=== PATIENT | female | born 1940 | race Caucasian/White ===

== ENCOUNTER 2017-04-04 10:00 | Inpatient (IN) | payer MEDICARE, BC ==
[~2017-04-04] VITALS: Ht 170.2 cm; Wt 69.3 kg
--- NOTE | ~2017-04-04 | PUL ---
PATIENT'S NAME: LIANE FISCHER [facility] AGE: 77 Y [address] ROOM: [address] [address] LOCATION: [facility] [place] ADMIT DATE: 04/21/2017 Pulmonary DISCHARGE DATE: 04/25/2017 FAMILY PHYSICIAN: Luma Leone MD ATTENDING PHYSICIAN: Blaze Arango NAME OF PROCEDURE: Overnight Pulse Oximetry DATE OF PROCEDURE: April 24 to April 25, 2017 REASON FOR EXAM: Nocturnal hypoxemia RESULTS: The test was performed on room air. The recording time was 7 hours, 50 minutes, and 32 seconds, with a total valid sampling time of 6 hours, 54 minutes, and 40 seconds. The highest pulse was 112, lowest pulse was 65, with a mean pulse of 78. The highest Spo2 was 98%, lowest SpO2 was 78%, with a mean SpO2 of 88%. The patient spent 4 hours, 44 minutes and 4 seconds with SpO2 less than 89%, representing 68.5% of the total sleep time. The desaturation event index was slightly elevated at 5.9. PHYSICIAN INTERPRETATION: The patient has evidence of significant nocturnal hypoxia and would qualify for supplemental oxygen as per Medicare criteria. However, because of the severity of her nocturnal hypoxia with an elevated desaturation event index a sleep study is recommended at this time. HOLDEN NEWSOME MD RFN/noelle /[id number] dtt: 04/28/17 1231 MERCEDEZ RADU F dtd: 04/27/17 0909
--- NOTE | ~2017-04-04 | DS ---
PATIENT'S NAME: LIANE FISCHER [facility] AGE: 77 Y [address] ROOM: [id number] [place], [place] [address] LOCATION: [facility] [place] ADMIT DATE: 04/21/2017 Discharge Summary DISCHARGE DATE: 04/25/2017 FAMILY PHYSICIAN: Luma Leone MD ATTENDING PHYSICIAN: Shankar Vaughn PRIMARY DIAGNOSIS: Degenerative joint disease of bilateral knee. SECONDARY DIAGNOSES: Coronary artery disease, hypertension, gastroesophageal reflux disease, rheumatoid arthritis, history of aortic valve replacement, and nocturnal hypoxia. PROCEDURE PERFORMED: Bilateral total knee arthroplasty with computer navigation. HISTORY: The patient is a 77-year-old female who presents with advanced bilateral knee degenerative joint disease and associated severely compromised activities of daily living. The patient has decided to proceed with total knee arthroplasty after having been thoroughly counseled regarding the risks, benefits, limitations and alternatives. Please refer to the outpatient clinic notes and admission history and physical for this patient. HOSPITAL COURSE: The patient underwent a bilateral total knee arthroplasty with computer navigation on 04/21/2017 without complications. Spinal anesthesia plus periarticular local anesthesia was utilized. The patient received 24 hours of perioperative prophylactic antibiotics and remained hemodynamically stable, neurovascularly intact throughout the entire hospital course. The postoperative prophylactic deep venous thrombosis prophylaxis consisted of Xarelto, early mobilization and pneumatic compression devices. Daily physical therapy for gait training, transfer training range of motion and quadriceps isometric exercises were received. The patient progressed well in physical therapy. On the date of discharge, 04/25/2017, the incision at the knee was healing well and showed no signs of infection. DISPOSITION: Home. DISCHARGE ACTIVITY: No range of motion until followup appointment. There is to be sterile 4x4 gauze dressings to the incision daily. Dr. Vaughn is to be notified immediately if there is any increased pain, fevers, chills erythema or drainage. DISCHARGE MEDICATIONS: Include, 1. Xarelto 10 mg, take 1 tablet p.o. daily for DVT prevention. 2. Diazepam 5 mg, take 1/2 tablet to one tablet every 6 hours as needed for muscle spasms. PATIENT'S NAME: LIANE FISCHER [facility] AGE: 77 Y [address] ROOM: [address] [place], [place] [address] LOCATION: [facility] [place] ADMIT DATE: 04/21/2017 Discharge Summary DISCHARGE DATE: 04/25/2017 FAMILY PHYSICIAN: Luma Leone MD ATTENDING PHYSICIAN: Shankar Vaughn 3. Dilaudid 2 mg, take 1 to 2 tablets p.o. every 4 hours as needed for pain. FOLLOWUP: Followup appointment is to be with Dr. Vaughn on 04/28/2017 for initial postoperative evaluation and x-rays at that time. BC BANUELOS FOR SHANKAR VAUGHN MD TLB/modl /[id number] d: 05/05/17 0456 t: 05/15/17 0939, DISCHARGE SUMMARY
--- NOTE | ~2017-04-04 | OR ---
PATIENT'S NAME: LIANE FISCHER [facility] AGE: 77 Y [address] ROOM: [place] [address] LOCATION: [facility] [place] ADMIT DATE: 04/21/2017 OR/Procedure Report DISCHARGE DATE: FAMILY PHYSICIAN: Luma Leone MD ATTENDING PHYSICIAN: SHANKAR VAUGHN SURGEON: Shankar Vaughn MD DIRECTOR OF NEIGHBORHOOD SERVICE CENTER: 1. Vijay Beck PA-C. 2. Arnulfo Washington CST/BINA. DATE OF PROCEDURE: 04/21/2017 PRE-OP DIAGNOSIS: Degenerative joint disease both knees. POST-OP DIAGNOSIS: Degenerative joint disease both knees. OPERATION: Bilateral total knee arthroplasty with computer navigation. ANESTHESIA: Spinal anesthesia plus periarticular local anesthesia (Ropivacaine with epinephrine and Toradol). ESTIMATED BLOOD LOSS: Less than 10 mL (each side). DRAIN: None. SPECIMEN: None. COMPLICATIONS: None. IMPLANT SYSTEM: Birdie Triathlon. Size 4 posterior stabilized femoral components bilaterally. Size 3 [place] Modular tibial plates bilaterally. An 11 mm posterior stabilized size 3, X3, tibial polyethylene inserts bilaterally. A 32 mm Oval X3 patella components bilaterally (triple pegged). INDICATION FOR SURGERY: Liane Fischer is a 77-year-old female who presents with advanced bilateral knee degenerative joint disease and associated severely compromised activities of daily living. The patient has decided to proceed with bilateral knee replacements after having been thoroughly counseled regarding the associated risks, benefits, and limitations. We have specifically reviewed the risks and implications of infection, deep venous thrombosis, pulmonary embolism, mortality, neurovascular complications, blood transfusion (and associated potential for disease transmission or transfusion reaction), stiffness, instability, mechanical deterioration of the components (due to wear and or loosening), and the potential need for revision. We have also emphasized the importance of active involvement and compliance with post- PATIENT'S NAME: LIANE FISCHER [facility] AGE: 77 Y [address] ROOM: [place] [id number] LOCATION: [facility] [place] ADMIT DATE: 04/21/2017 OR/Procedure Report DISCHARGE DATE: FAMILY PHYSICIAN: Luma Leone MD ATTENDING PHYSICIAN: SHANKAR VAUGHN operative physical therapy as a means of optimizing range of motion and functional recovery. Informed consent has been granted. We have also reviewed potential increased risks associated with bilateral (as opposed to staged) knee replacements including increased risk of requiring blood transfusion as well as the potential increased risk of mortality, deep venous thrombosis, and/or fat embolism syndrome. The patient has chosen to accept these potential increased risks. DESCRIPTION OF PROCEDURE: The patient was positioned supine after administration of anesthesia and prophylactic antibiotics. A well-padded pneumatic tourniquet was placed around both proximal thighs, and both lower extremities were prepped and draped with vigilant sterile technique. The patient's name as well as the intended procedure were confirmed with a verbal time-out involving myself, the circulating nurse, the scrub nurse, and the anesthesiologist. Attention was first focused on the right lower extremity. Examination under anesthesia demonstrated no active skin lesions or masses. There was a mild effusion. There was no erythema. There was no abnormal warmth. Range of motion under anesthesia was from a 5-degree flexion contracture to 130 degrees of flexion. There was no ligamentous insufficiency. The right lower extremity was elevated and exsanguinated with an Esmarch wrap, and the pneumatic tourniquet was inflated to 300 mm. The knee was approached through a longitudinal midline incision. A medial parapatellar arthrotomy was performed and the patella was everted. Examination of the joint space demonstrated a moderate amount of benign-appearing translucent synovial fluid. There was a small osteophyte at the intercondylar notch. There were no loose bodies. There was no synovitis. Cruciate ligaments were intact. There were moderate-sized osteophytes at the tibial spines. There was severe generalized osteopenia. There was a small popliteal cyst, which I decompressed into the posterior medial aspect of the joint by dilating its point of communication. There was a large osteophyte at the lateral margin of the patella. There were small osteophytes at the lateral femoral condyle and lateral margin of the femoral trochlea. There was moderate chondrocalcinosis at the medial and lateral menisci as well as the medial and lateral tibial plateaus. There was mild grade 3 chondromalacia at the lateral tibial plateau. There was grade 2 chondromalacia at the medial tibial plateau. There were moderate grade 3 degenerative changes at the medial femoral condyle with high-grade partial- thickness unstable flaps of delaminated articular cartilage at the medial femoral condyle. There was full-thickness loss of articular cartilage involving 90% of the patella and the lateral 75% of the femoral trochlea with associated deep erosion of subchondral bone from the lateral half of the patella and the lateral half of the femoral trochlea. There was associated PATIENT'S NAME: LIANE FISCHER [facility] AGE: 77 Y [address] ROOM: [place] [address] LOCATION: [facility] [place] ADMIT DATE: 04/21/2017 OR/Procedure Report DISCHARGE DATE: FAMILY PHYSICIAN: Luma Leone MD ATTENDING PHYSICIAN: SHANKAR VAUGHN deep longitudinal erosions and striations of articular cartilage throughout the patellofemoral joint yielding a corduroy appearance. Remnants of the menisci and cruciate ligaments were excised. The C2cube computer navigation femoral tracker was secured in place at the distal aspect of the femoral trochlea with three pins. Absence of motion between the femur and the tracking device was confirmed manually and visually. Femoral osseous landmarks were obtained in order to calibrate the computer navigation system. Landmarks included the center of rotation of the ipsilateral hip, the center- point of the distal femur, the vertical bisector of the femoral trochlea, 20 points on the medial femoral condyle articular surface, and 20 points on the lateral femoral condyle articular surface. The C2cube computer navigation system was subsequently utilized to position the distal femoral resection block such that the distal femoral resection was performed perfectly perpendicular to the femoral mechanical axis. The distal femoral resection was performed with a [employer] oscillating saw. The C2cube computer navigation tibial tracker was secured in place at the anterior aspect of the tibial plateau with three points. Absence of motion between the tibia and the tracking device was confirmed manually and visually. Tibial osseous landmarks were obtained in order to calibrate the computer navigation system. Landmarks included the center-point of the tibial plateau, the sagittal bisector of the tibial plateau, 20 points on the medial tibial plateau articular surface, 20 points on the lateral tibial plateau articular surface, the medial malleolus, and the lateral malleolus. The C2cube computer navigation system was subsequently utilized to position the proximal tibial resection block such that the proximal tibial resection was performed perfectly perpendicular to the tibial mechanical axis. The proximal tibial resection was performed with a [employer] oscillating saw. Perpendicularity of the tibial resection with respect to the tibial shaft axis was reconfirmed by inserting a spacer-block attached to an extramedullary guide lucas. External rotation of the anterior and posterior femoral resections was set parallel to the epicondylar axis and carefully adjusted in order to create a rectangular flexion gap. The box resection was performed with a reciprocating saw. Anterior and posterior chamfer resections were performed with the oscillating saw. Posterior condyle osteophytes were excised with an osteotome. All other osteophytes were excised with a rongeur. Resection of all remnants of the menisci was reconfirmed. Flexion and extension gaps were confirmed to be symmetric and well balanced with a spacer-block technique. The patella resection was performed with an oscillating saw such that the composite thickness of the reconstructed patella was equivalent to the thickness of the [place] patella. Patella tracking was optimal, and there was PATIENT'S NAME: LIANE FISCHER [facility] AGE: 77 Y [address] ROOM: [place] [address] LOCATION: [facility] [place] ADMIT DATE: 04/21/2017 OR/Procedure Report DISCHARGE DATE: FAMILY PHYSICIAN: Luma Leone MD ATTENDING PHYSICIAN: SHANKAR VAUGHN no need for a lateral retinacular release. All trial components were removed and all prepared osseous surfaces were thoroughly irrigated with pulsatile saline lavage and dried prior to cementing all three components in a single stage using [employer] Simplex cement containing pre-mixed tobramycin. All extruded excess cement was removed. The entire joint space was thoroughly inspected and thoroughly irrigated with bacteriostatic pulsatile saline lavage to assure that there was no residual debris of any sort. Final range of motion was from full extension to 130 degrees of flexion. Patella tracking was reconfirmed to be optimal. There was excellent anteroposterior stability at 90 degrees of flexion. There was less than 1 mm of medial lift-off to valgus stress in full extension. There was less than 1 mm of lateral lift-off to varus stress in full extension. The arthrotomy was closed with multiple simple and [id number]-ce-zvajt interrupted #1 Vicryl and #0 Vicryl sutures. Subcutaneous tissues were thoroughly re- irrigated with bacteriostatic pulsatile saline lavage. Subcutaneous tissues were re-approximated with simple buried interrupted #0 Vicryl sutures followed by surgical obie. The dressing consisted of Xeroform gauze, 4 x 4 gauze, ABD pads and two 6-inch George Wraps. There were no intra-operative complications. Attention was next focused on the left lower extremity. Examination under anesthesia demonstrated a mild effusion. There were no active skin lesions or masses. There was no erythema. There was no abnormal warmth. Range of motion under anesthesia was from a 2 degree flexion contracture to 140 degrees of flexion. There was no ligamentous insufficiency. The left lower extremity was elevated and exsanguinated with an Esmarch wrap, and the pneumatic tourniquet was inflated to 300 mm. The knee was approached through a longitudinal midline incision. A medial parapatellar arthrotomy was performed and the patella was everted. Examination of the joint space demonstrated a moderate amount of benign-appearing translucent synovial fluid. Cruciate ligaments were intact. There were moderate-sized osteophytes at the tibial spines. There was no synovitis. There were no loose bodies. There was extensive chondrocalcinosis at the lateral meniscus. There was mild chondrocalcinosis at the medial meniscus. There was moderate chondrocalcinosis at the lateral tibial plateau. There were mild grade 3 degenerative changes and a small osteophyte at the lateral tibial plateau. There was a 1 cm diameter region of full-thickness articular cartilage loss at PATIENT'S NAME: LIANE FISCHER [facility] AGE: 77 Y [address] ROOM: [address] [address] LOCATION: [facility] [place] ADMIT DATE: 04/21/2017 OR/Procedure Report DISCHARGE DATE: FAMILY PHYSICIAN: Luma Leone MD ATTENDING PHYSICIAN: SHANKAR VAUGHN the posterior medial aspect of the lateral femoral condyle. There was a small osteophyte at the lateral femoral condyle. There was moderate chondrocalcinosis at the medial tibial plateau and mild chondrocalcinosis at the medial femoral condyle. There was grade 2 chondromalacia at the medial tibial plateau. There was high-grade, partial-thickness articular cartilage loss at the medial femoral condyle with multiple unstable high-grade, partial- thickness flaps of articular cartilage at the medial femoral condyle. There was a small osteophyte at the lateral femoral trochlea. There was a large osteophyte at the superolateral margin of the patella. There was full- thickness loss of articular cartilage throughout the lateral 90% of the patella and the lateral 80% of the femoral trochlea. There were deep longitudinal striations of eburnated, eroded, subchondral bone at the patellofemoral joint yielding a corduroy appearance. The subchondral erosion was deeper at the patella on the left knee compared to the right knee. Remnants of the menisci and cruciate ligaments were excised. The C2cube computer navigation femoral tracker was secured in place at the distal aspect of the femoral trochlea with three pins. Absence of motion between the femur and the tracking device was confirmed manually and visually. Femoral osseous landmarks were obtained in order to calibrate the computer navigation system. Landmarks included the center of rotation of the ipsilateral hip, the center- point of the distal femur, the vertical bisector of the femoral trochlea, 20 points on the medial femoral condyle articular surface, and 20 points on the lateral femoral condyle articular surface. The C2cube computer navigation system was subsequently utilized to position the distal femoral resection block such that the distal femoral resection was performed perfectly perpendicular to the femoral mechanical axis. The distal femoral resection was performed with a [employer] oscillating saw. The C2cube computer navigation tibial tracker was secured in place at the anterior aspect of the tibial plateau with three pins. Absence of motion between the tibia and the tracking device was confirmed manually and visually. Tibial osseous landmarks were obtained in order to calibrate the computer navigation system. Landmarks included the center-point of the tibial plateau, the sagittal bisector of the tibial plateau, 20 points on the medial tibial plateau articular surface, 20 points on the lateral tibial plateau articular surface, the medial malleolus, and the lateral malleolus. The C2cube computer navigation system was subsequently utilized to position the proximal tibial resection block such that the proximal tibial resection was performed perfectly perpendicular to the tibial mechanical axis. The proximal tibial resection was performed with a [employer] oscillating saw. Perpendicularity of the tibial resection with respect to the tibial shaft axis was reconfirmed by inserting a spacer-block attached to an extramedullary guide lucas. PATIENT'S NAME: LIANE FISCHER [facility] AGE: 77 Y [address] ROOM: [address] [address] LOCATION: [facility] [place] ADMIT DATE: 04/21/2017 OR/Procedure Report DISCHARGE DATE: FAMILY PHYSICIAN: Luma Leone MD ATTENDING PHYSICIAN: SHANKAR VAUGHN External rotation of the anterior and posterior femoral resections was set parallel to the epicondylar axis and carefully adjusted in order to create a rectangular flexion gap. The box resection was performed with a reciprocating saw. Anterior and posterior chamfer resections were performed with the oscillating saw. Posterior condyle osteophytes were excised with an osteotome. All other osteophytes were excised with a rongeur. Resection of all remnants of the menisci was reconfirmed. Flexion and extension gaps were confirmed to be symmetric and well balanced with a spacer-block technique. The patella resection was performed with an oscillating saw such that the composite thickness of the reconstructed patella was equivalent to the thickness of the [place] patella. Patella tracking was optimal, and there was no need for a lateral retinacular release. Left. All trial components were removed and all prepared osseous surfaces were thoroughly irrigated with pulsatile saline lavage and dried prior to cementing all three components in a single stage using [employer] Simplex cement containing pre-mixed tobramycin. All extruded excess cement was removed. The entire joint space was thoroughly inspected and thoroughly irrigated with bacteriostatic pulsatile saline lavage to assure that there was no residual debris of any sort. Final range of motion was from full extension to 130 degrees of flexion. Patella tracking was reconfirmed to be optimal. There was excellent anteroposterior stability at 90 degrees of flexion. There was less than 1 mm of medial lift-off to valgus stress in full extension. There was less than 1 mm of lateral lift-off to varus stress in full extension. The arthrotomy was closed with multiple simple and [id number] interrupted #1 Vicryl and #0 Vicryl sutures. Subcutaneous tissues were thoroughly re- irrigated with bacteriostatic pulsatile saline lavage. Subcutaneous tissues were re-approximated with simple buried interrupted #0 Vicryl sutures. The skin was closed with simple buried interrupted 2-0 Vicryl sutures followed by surgical obie. The dressing consisted of Xeroform gauze, 4 x 4 gauze, ABD pads and two 6-inch George Wraps. There were no intra-operative complications. It should be noted that the physician's law office assistant played an active, integral role throughout this entire operation. By providing expert retraction, they greatly facilitated and expedited safe and effective exposure of the distal femur, proximal tibia and patella for preparation and implantation of the components. They were also actively involved in the patient's positioning, PATIENT'S NAME: LIANE FISCHER [facility] AGE: 77 Y [address] ROOM: [place] [address] LOCATION: [facility] [place] ADMIT DATE: 04/21/2017 OR/Procedure Report DISCHARGE DATE: FAMILY PHYSICIAN: Luma Leone MD ATTENDING PHYSICIAN: SHANKAR VAUGHN prepping and draping, as well as wound closure. MD TJ ALICIA/modl /[id number] d: 04/23/17 0940 t: 04/25/17 1033, OPERATIVE SUMMARY
[2017-04-04] MEDS ORDERED: NORCO 5-325 TA1 EACH PO (10:08)
[2017-04-04] MEDS ORDERED: LIPITOR80 MG PO (10:09)
[2017-04-04] MEDS ORDERED: ASPIRIN EC81 MG PO (10:09)
[2017-04-04] MEDS ORDERED: COREG 3.1253.125 MG PO (10:10)
[2017-04-04] MEDS ORDERED: K-TAB ER20 MEQ PO (10:10)
[2017-04-04] MEDS ORDERED: NEURONTIN300 MG PO (10:10)
[2017-04-04] MEDS ORDERED: PROTONIX40 MG PO (10:11)
[2017-04-04] MEDS ORDERED: ALDACTONE25 MG PO (10:12)
[2017-04-04] MEDS ORDERED: METHOTREXATE (2.5 MG PO (10:13)
[2017-04-04] MEDS ORDERED: FOLIC ACID0.8 MG PO (10:14)
[2017-04-04] MEDS ORDERED: TYLENOL ARTHRI650 MG PO (10:15)
--- NOTE | 2017-04-21 17:50 | NUR ---
Significant Event: Pt to the floor from OR at 1630. VS q30min x3 starting at 1820. HR has been in the 40s. Was in OR and anesthesia knows. Pt on PULLEY WORKER with dilaudid 0.2mg with lockout at 15 minutes. Numbness and tingling to bilateral LE. Wiggles toes with slight movement. Cannot dorsiflex or plantarflex at this time. PP 2+ bilaterally. ICE wraps in place. Dressing clean dry and intact to bilateral extremities. Denies pain. Pt had a spinal and a general anesthetic. Pt hasn't voided
--- NOTE | 2017-04-21 18:51 | NUR ---
I was preceptor for Kandi Barajas student nurse and I agree with her charting since pt came up from PACU.
--- NOTE | 2017-04-22 04:24 | NUR ---
Significant Event: Dressings are clean, dry and intact. CSM WNL. 1-2 assist with transfers. Voided 300 ml. Was hypotensive and gave a 500ml bolus per MD order. On 2 L of oxygen nasal cannula. On a Dilaudid EDITOR IN CHIEF. Heart rate has been in 40's, MD aware and call if less than 40. EKG done and results called to MD. Follow up:
[2017-04-22 04:36] LABS: HEMATOCRIT 28.9 % (33.0-46.0); HEMOGLOBIN 9.1 g/dL (10.0-15.0)
--- NOTE | 2017-04-22 19:14 | NUR ---
Significant Event: UP IN RECLINER. AMBUL TO BR, TOLERATED FAIR. CARA WRP D/I BILAT. CSM GOOD. HAD DILAUDID 2 MG 1 TAB X2 LAST AT 1510, HAD ROUTINE TYLENOL. HAD TORADOL 15 MG IV AT 1700. REPORTS RELIEF FROM THAT,,,,HAVING LOW HR AND BP. AWARE.MED HELD.... Follow up:
--- NOTE | 2017-04-23 03:59 | NUR ---
Shift Summary: Patient can ambulate with one assist. Only took one 2mg Diladid for pain this shift at 0134. Tolerating regular diet well. Voiding without difficulty. Refuses miralax.
[2017-04-23 05:30] LABS: HEMATOCRIT 24.1 % (33.0-46.0); HEMOGLOBIN 7.7 g/dL (10.0-15.0)
--- NOTE | 2017-04-23 18:04 | NUR ---
Significant Event: UP TO BR, CHAIR, AMBUL IN [place], TOLERATED WELL. HGB IS 7.9...HAD DILAUDID 2 MG X2 LAST AT 1140, HAD TORADOL 15 MG AT 1140. OFFERED PAIN MED AT 1700 BUT REFUSED. CSM GOOD, DRSG CHANGED, HAS SCANT AMT BLOOD DRAINAGE ON DRSG, ENC TO KEEP ICE ON KNEES, PLANING ON DISMISSAL ON MONDAY. Follow up:
--- NOTE | 2017-04-24 03:56 | NUR ---
Shift Summary: Patient's Hgb 7.7 yesterday. Patient requiring 4L O2 throughout the night. RT stated he was unable to wean her down from that. Did give patient Valium 5mg/Dilaudid 2mg at bedtime. Changed dressings at beginning of shift per 's orders wit betadine paint of incision due to bloody drainage. Changed the right knee dressing again during the night for quarter size drainage. Patient having difficulty standing up and slower ambulating.
[2017-04-24 05:46] LABS: HEMATOCRIT 19.5 % (33.0-46.0)
[2017-04-24 05:48] LABS: HEMOGLOBIN 6.2 g/dL (10.0-15.0)
[2017-04-24 09:40] LABS: HEMATOCRIT 20.4 % (33.0-46.0)
[2017-04-24 09:42] LABS: HEMOGLOBIN 6.5 g/dL (10.0-15.0)
--- NOTE | 2017-04-24 13:11 | NUR ---
Patient attended the preop joint class with her son. Reports she has DME available. Plans to have help from her sons. May dismiss to son's home in [place]. Reviewed use of IS and encouraged at least 10 deep breaths per hour. Has foot pumps on bilat. Will follow and assist as needed.
--- NOTE | 2017-04-25 03:08 | NUR ---
Significant Event: Alert and oriented X3. Low grade temp of 99.5, otherwise, VSS. Sats 90-92% on RA. Overnight trend ox ordered tonight. CSM WNL. Slight edema present to bilateral lower extemities. Dressings CDI. Incontinent of urine X1. No BM this shift. Need hemetest stools X3. IV SL'd to L) wrist. Ambulates with 1 assist, gait belt and walker. Scheduled tylenol and dilaudid for pain. Dilaudid last given at 0253. 2 units of blood transfused yesterday. Follow up: Hgb this am. Xarelto on hold.
[2017-04-25 05:29] LABS: HEMOGLOBIN 8.6 g/dL (10.0-15.0)
[2017-04-25 05:34] LABS: HEMATOCRIT 26.5 % (33.0-46.0)
[2017-04-25] MEDS ORDERED: COLACE100 MG PO (13:03)
[2017-04-25] MEDS ORDERED: MIRALAX17 GM PO (13:04)
[2017-04-25] MEDS ORDERED: VALIUM5 MG PO (13:05)
[2017-04-25] MEDS ORDERED: DILAUDID 2MG(HYD2 MG PO (13:06)
[2017-04-25] MEDS ORDERED: XARELTO10 MG PO (13:07)
--- NOTE | 2017-04-25 16:40 | NUR ---
D: ORDERS RECEIVED FOR THE PATIENT TO BE DISCHARGED TO HOME TODAY WITH FAMILY. I: DISMISSAL INSTRUCTIONS WERE PREPARED AND REVIEWED WITH PATIENT AND HER DAUGHTER IN LAW AT BEDSIDE. THE FOLLOWING INFORMATION WAS DISCUSSED INCLUDING KRAMES TEACHING SHEETS PROVIDED: AFTER KNEE REPLACEMENT AT [facility], XARELTO, COLACE, MIRALAX, VALIUM, DILAUDID, AND INCISION CARE. REVIEWED FOLLOW UP APPOINTMENTS AND THAT SHE NEEDS TO FOLLOW UP WITH A PCP IN 2 WEEKS AND ALL NEW PRESCRIPTIONS. R: THE PATIENT AND HER DAUGHTER IN LAW BOTH VERBALIZED UNDERSTANDING OF THE DISMISSAL EDUCATION AT THE TIME OF TEACHING WITH NO FURTHER QUESTIONS. P: THE ABOVE INFORMATION WAS SHARED WITH THE PRIMARY NURSE AND THE CHARGE NURSE THAT THE PATIENT'S DISMISSAL EDUCATION WAS COMPLETED. THE PATIENT IS READY FOR DISCHARGE TO HOME WITH HER SON AND DAUGHTER IN LAW SOON HE RETURNS TO THE HOSPITAL. THE PATIENT WILL BE TRANSPORTED VIA WHEEL CHAIR BY NURSING STAFF TO THE FRONT DOOR BY NURSING STAFF.
--- NOTE | 2017-04-25 16:57 | NUR ---
DISMISSED PER W/C TO CAR ACCOMP.BY MIXING MACHINE TENDER CORK GASKET & FAMILY AFTER DISCHARGE TEACHING WAS DONE BY VIRTUAL NURSE AND THEY VERBALIZED UNDERSTANDMENT.
== END 2017-04-25 16:57 | disposition disaster alternative care site (69) | DRG 462 ==
LOC: G3N 04-21 09:13 → GMSU 04-22 16:31
PROVIDERS: Hospitalist; Nurse Practitioner Family; Physician Assistant; ADMIT Orthopaedic Surgery
DX: M17.0 Bilateral primary osteoarthritis of knee (principal); D62 Acute posthemorrhagic anemia; M06.9 Rheumatoid arthritis, unspecified; R00.1 Bradycardia, unspecified; I10 Essential (primary) hypertension; I25.10 Atherosclerotic heart disease of native coronary artery without angina pectoris; K21.9 Gastro-esophageal reflux disease without esophagitis; Z87.891 Personal history of nicotine dependence
CPT/HCPCS: C1713; C1776; J1100; J1170; J1885; J2001; J2405; J2795; J7030; J7050; J7060; J7120; P9016

== ENCOUNTER → 2017-04-06 | Outpatient (CLI) | payer MEDICARE, BC ==
[~2017-04-06] MED LIST: ALDACTONE25 MG PO; ASPIRIN EC81 MG PO; COLACE100 MG PO; COREG 3.1253.125 MG PO; DILAUDID 2MG(HYD2 MG PO; FEOSOL325 MG PO; FOLIC ACID0.8 MG PO; K-TAB ER20 MEQ PO; KEFLEX500 MG PO; LASIX20 MG PO; LIPITOR80 MG PO; MACROBID100 MG PO; METHOTREXATE (2.5 MG PO; MIRALAX17 GM PO; NEURONTIN300 MG PO; NORCO 5-325 TA1 EACH PO; PROTONIX40 MG PO; TYLENOL ARTHRI650 MG PO; VALIUM5 MG PO; XARELTO10 MG PO
[2017-04-06 14:13] LABS: INR - (THERAPEUTIC) 0.95 (0.92-1.07)
== END ==
LOC: LGSMG 14:01
PROVIDERS: Internal Medicine
DX: Z01.818 Encounter for other preprocedural examination (principal)

== ENCOUNTER → 2017-04-06 | Outpatient (CLI) | payer MEDICARE, BC | END | disposition disaster alternative care site (69) | LOC: GNJRC 10:17 | DX: Z01.812 Encounter for preprocedural laboratory examination (principal); M17.11 Unilateral primary osteoarthritis, right knee; M17.12 Unilateral primary osteoarthritis, left knee ==

== ENCOUNTER 2017-05-17 00:03 | Observation (INO) | payer MEDICARE, BC ==
[~2017-05-17] VITALS: Ht 226.1 cm; Wt 70.8 kg
--- NOTE | ~2017-05-17 | ER ---
PATIENT'S NAME: LIANE FISCHER [facility] AGE: 77 Y [address] ROOM: [id number] [place], [place] [address] LOCATION: GPCU ADMIT DATE: 05/17/2017 ER/Outpatient Report DISCHARGE DATE: FAMILY PHYSICIAN: PHYSICIAN, NO ATTENDING PHYSICIAN: SHANKAR VAUGHN HISTORY OF PRESENT ILLNESS: I was called by the physician's retirement assistant in the Operating Room in [place] this evening to inform me that Ms. Fischer had presented there (after having been declined admission to a local mcc). She states that she has been feeling "tired and depressed" over the past week or so. We performed simultaneous bilateral knee replacements for her on April 21. She has been residing at home with various friends, neighbors, and family members checking in on her daily. She states that she has not been eating very much because none of her helpers prepare food. She states that she has been avoiding drinking liquids because of urinary urgency, incontinence, and dysuria. She has been taking one Dilaudid in the evening and one Dilaudid in the morning. Analgesia has been adequate. In fact, she has required no Dilaudid today. She states that she is having minimal knee pain. Both knees feel markedly improved compared to before surgery. She notes that her range of motion is markedly improved compared to before surgery. She is optimistic regarding the ongoing trend of improvement in her knees, and neither the patient (nor her son, who accompanies her) suspect that there is a problem with either of her knees. She presented to a local Urgent Care Center with complaints of dysuria and urinary frequency one week ago. The Urgent Care Center in [place] prescribed antibiotics. These provided partial relief for approximately 2 days. Symptoms escalated a few days later, and she returned to the same Urgent Care Center last weekend, where she was told (by the same physician's retirement assistant), "we didn't get a good culture, and I am not sure I put you on the right antibiotics." A second culture was obtained, and she was placed on a different oral antibiotic (ciprofloxacin). She continues to experience urinary urgency in the morning, but the dysuria has resolved. Of note, a repeat urinalysis at the Emergency Room in [place] this evening demonstrated no sign of a persistent urinary tract infection. Nonetheless, the patient has been curtailing her oral fluid intake because of the ongoing urinary urgency and incontinence that she has been experiencing in the morning. Of note, she has a history of "frequent urinary tract infections" in the past. She has been alternating between a walker and a cane, but she notes that she is able to ambulate within her house with no assistive device. She notes that she ambulates markedly better than she did before surgery. She states that outpatient physical therapy has been going well. She states, "my knees are PATIENT'S NAME: LIANE FISCHER [facility] AGE: 77 Y [address] ROOM: [id number] [place], [place] [address] LOCATION: GPCU ADMIT DATE: 05/17/2017 ER/Outpatient Report DISCHARGE DATE: FAMILY PHYSICIAN: PHYSICIAN, NO ATTENDING PHYSICIAN: SHANKAR VAUGHN much better than before surgery." She states that her neighbor encouraged her to go to [facility] to be admitted to receive "extra physical therapy." She did go to [facility] today, where she was told that she could not be admitted. Her son subsequently took her to the [place] Emergency Room. Of note, there was no communication with my office regarding any of the events in the last week. Multiple tests were performed in the [place] Emergency Room. Her principal complaint in the Emergency Room was not her knees. In fact, she states, "I told them that my knees didn't hurt." She has been experiencing significant discomfort and tightness at the posterior aspects of both distal calves. Concern was raised in the Emergency Room regarding the potential for cellulitis in the calves. A duplex venous ultrasound in the Emergency Room this evening was negative for DVT in both lower extremities. X-rays were taken of both knees, and this is in addition to the x-rays that were taken in my office a few weeks ago. These were interpreted as normal. Again, the patient was not complaining of knee pain, and there has been no postoperative trauma to either knee. The Emergency Room physician in [place] tells me that he checked the knee x-rays because "the legs were hurting her." The patient states that it has been difficult and painful for her to apply her JANICE stockings (due to pain in the distal posterior calves), but she has been doing this anyway. She states that her Physical therapist has been telling her that she is "doing all right." The C-reactive protein in the [place] Emergency Room was noted to be markedly elevated (57). The erythrocyte sedimentation rate was noted to be mildly elevated. The patient states that she started to experience low-grade fevers today. She denied chills. She has no other localizing signs or symptoms of infection. She denies chest pain or shortness of breath. Her troponin was slightly elevated in the [place] Emergency Room. This was discussed with her customer care specialist, (Dr. Soliz), who also happens to be a close family friend. The Emergency Room physician in [place] informed me that Dr. Soliz was not concerned by the elevated troponin. EKG changes were also reportedly noted. After being contacted by the Emergency Room physician in [place], I asked that the patient be brought here by a private vehicle. There were no signs and symptoms of septicemia, and I therefore, suggested that the patient did not need to come by ambulance. This was the patient's family's preference as PATIENT'S NAME: LIANE FISCHER [facility] AGE: 77 Y [address] ROOM: [id number] [place] [id number] LOCATION: GPCU ADMIT DATE: 05/17/2017 ER/Outpatient Report DISCHARGE DATE: FAMILY PHYSICIAN: PHYSICIAN, NO ATTENDING PHYSICIAN: SHANKAR VAUGHN well. The patient states that she did not feel that she can manage independently at home any longer (despite the fact that she has been improving). She would prefer to be in a Half-Way at this point, this seems to be the principal driving force behind why she went to [facility] today, and was subsequently referred on to the Emergency Room at [facility]. PHYSICAL EXAMINATION: GENERAL: The patient is alert and oriented and accompanied by her son (who drove from [place] to pick her up in [place]). She is in no distress whatsoever. Her affect is flat. EXTREMITIES: Both knee incisions are clean, dry, and intact without erythema. There is no effusion palpable in either knee whatsoever. There is no increased warmth at either knee whatsoever. The knees look atypically benign for this stage after bilateral knee replacements. There was virtually no tenderness at either knee. There is no visible swelling in either knee. There is no flexion contracture or extensor lag at either knee. She flexes both knees comfortably to 100 degrees. There is no swelling or tenderness at the proximal halves of both calves. There is mild erythema and significant induration and tenderness at the posteromedial aspect of the left calf. There is mild tenderness, no erythema, and moderate tenderness at the posteromedial aspect of the right calf. There is no peripheral edema in either lower extremity. She is able to actively dorsiflex and plantar flex both ankles with good motor strength. The 1+ dorsalis pedis pulses bilaterally. In addition to the induration and erythema at the posterior medial aspect of the left calf, there was considerable ecchymosis in this region. There was no ecchymosis at the proximal left calf or at either knee. RADIOGRAPHS: I reviewed AP and lateral radiographs of both knees from the [place] Emergency Room. No abnormalities were noted. I have reviewed the C-reactive protein level (57). I have reviewed the report of the ultrasound from this evening (no evidence of DVT in either lower extremity). I reviewed the extensive additional blood work that was done in [place]. Her BUN and creatinine ratio was noted to be elevated (consistent with dehydration and having restricted her p.o. intake). She is mildly hyponatremic (sodium was 131). IMPRESSION: 1. No evidence of knee infection (subjectively or objectively), status post simultaneous bilateral knee replacements. 2. Idiopathic elevation in C-reactive protein. 3. Elevated troponin. 4. Hyponatremia. 5. Mixed ecchymoses and possible mild associated cellulitis in left PATIENT'S NAME: LIANE FISCHER [facility] AGE: 77 Y [address] ROOM: [id number] [place], [place] [address] LOCATION: GPCU ADMIT DATE: 05/17/2017 ER/Outpatient Report DISCHARGE DATE: FAMILY PHYSICIAN: PHYSICIAN, NO ATTENDING PHYSICIAN: SHANKAR VAUGHN posteromedial calf. 6. Self-imposed dehydration. 7. Recent urinary tract infection (treated elsewhere) with negative urinalysis this evening. RECOMMENDATIONS: I have reassured the patient and her son that the knees appear quite benign. Aspiration is not warranted. I will initiate Keflex (given the fact that there is potential cellulitis at the left posteromedial calf). I have asked the Hospitalist team to treat her hyponatremia and to render an opinion on the elevated troponin level and EKG. The patient will be brought in to the hospital in observation status, and the Discharge Planning team will see her first thing in the morning to arrange admission to local Detention Facility as soon as possible (hopefully in the morning today). Physical therapy for gait training and range of motion. MD TJ ALICIA/anuradha /[id number] d: 05/17/17 0540 t: 05/24/17 1744, OUTPATIENT REPORT
--- NOTE | ~2017-05-17 | CON ---
PATIENT'S NAME: LIANE FISCHER [facility] AGE: 77 Y [address] ROOM: [address] [address] LOCATION: GPCU ADMIT DATE: 05/17/2017 Consultation DISCHARGE DATE: FAMILY PHYSICIAN: PHYSICIAN, NO ATTENDING PHYSICIAN: SHANKAR VAUGHN DATE OF CONSULTATION: 05/17/2017 REFERRING PHYSICIAN: Shankar Vaughn MD CONSULTING PHYSICIAN: Dr. Tinajero. REASON FOR CONSULTATION: Medical management. HISTORY OF PRESENT ILLNESS: The patient is a 77-year-old female with a past medical history most significant for an uneventful bilateral total knee arthroplasty, approximately 3 weeks ago, as well as history of coronary artery disease, status post stents, bioprosthetic aortic valve, and rheumatoid arthritis. The patient has essentially been not doing well at home after her surgery. Her complaints are that of "depression," bilateral lower extremity pain, and inability to get around. She was recently treated for a UTI. She also feels that she has been unable to achieve adequate oral intake of food or liquids. The patient was taken to the ER in [place] earlier today due to the above complaints. There a workup revealed a CRP of 50 as well as a troponin of 0.05 as well as some edema of her ankles. She was transferred to [facility] for Orthopedic evaluation. Dr. Vaughn saw the patient and felt that her knees in fact were healing quite well and admitted the patient for placement. She also had a mildly elevated BUN and a mildly low sodium. At this point, the patient's primary complaints are profound tenderness at bilateral ankles with some discoloration, which appears as tracking down of blood from her surgical incisions as well as depression. REVIEW OF SYSTEMS: All systems have been reviewed and are negative aside from pertinent positives mentioned above. PAST MEDICAL HISTORY: As listed in the HPI. PAST SURGICAL HISTORY: PATIENT'S NAME: LIANE FISCHER [facility] AGE: 77 Y [address] ROOM: [id number] [place] [id number] LOCATION: GPCU ADMIT DATE: 05/17/2017 Consultation DISCHARGE DATE: FAMILY PHYSICIAN: PHYSICIAN, NO ATTENDING PHYSICIAN: SHANKAR VAUGHN As per HPI. CURRENT MEDICATIONS: The patient is unable to give me a full list, but it should be noted that she used to be on methotrexate and that was discontinued in anticipation of the surgery and has not been restarted. FAMILY HISTORY: Reviewed and is noncontributory. SOCIAL HISTORY: Significant for approximately 20-pack years, quit 25 years ago, and no other toxic habits. PHYSICAL EXAMINATION: VITAL SIGNS: Blood pressure 129/62, temperature 98, satting 92% on room air, pulse 73, and respirations 16. GENERAL: Appears as a well-developed, well-nourished elderly female in no acute distress. NEUROLOGIC: Exam is nonfocal. PSYCHIATRIC: Exam is positive for some depressed mood, but no suicidal or homicidal ideations. LYMPHATICS: Exam shows no cervical lymphadenopathy. ENDOCRINE: Exam shows no thyromegaly. LUNGS: Exam reveals dry crackles at bases bilaterally approximately [address] GI: Abdomen is soft, nontender, nondistended. : No costovertebral angle tenderness. VASCULAR: A 2+ pedal pulses. SKIN: Does reveal warmth and swelling with 1+ pitting edema of her bilateral ankles and 2+ pedal pulses. LABORATORY DATA: Review of the studies from outside facility are significant for procalcitonin of 0.13, negative bilateral venous Dopplers. CRP of 57, hemoglobin of 11.4, platelets of 170. Troponin of 0.05. Chest x-ray reveals fibrosis and scarring. IMPRESSION/RECOMMENDATIONS: This is a 77-year-old female who is being admitted with adult failure-to- thrive after bilateral total knee replacement. Individual problems to be addressed as follows: 1. Questionable depression. At this point, I do not think the patient should be fully diagnosed with depression as this may just be a reactive disorder after her surgery. I would like to defer any medical therapy to PATIENT'S NAME: LIANE FISCHER [facility] AGE: 77 Y [address] ROOM: [place] [address] [facility] ADMIT DATE: 05/17/2017 Consultation DISCHARGE DATE: FAMILY PHYSICIAN: PHYSICIAN, NO ATTENDING PHYSICIAN: SHANKAR VAUGHN her PMD. 2. Suspected cellulitis of bilateral lower extremities. The patient has been started on Keflex by Orthopedics. 3. CRP elevation. This is likely due to the patient's active rheumatoid arthritis. I believe that her chest x-ray findings are probably also related to rheumatoid lung disease. At this point, she is not hypoxic. I believe the patient will benefit from restarting methotrexate; however, she told me that she would rather not do that. As such, I recommend that she follow up with her mine environmental engineer. She will also need to follow up with audit partner and has seen Dr. Espino in the past. She has never been told that she has a history of rheumatoid lung disease, and though at this point, it appears that she might have pulmonary involvement. 4. Mild hyponatremia, dehydration. I do not believe this is very significant and should correct with normal saline ordered by Orthopedics. 5. Mild very minimal troponin elevation. The patient has had a preoperative workup including nuclear stress test and an echocardiogram with her primary owner/operator, Dr. Soliz; and at this point, I do not believe that any additional cardiac workup is required, as she does not volunteer or endorse any cardiac symptoms. 6. At this point, the patient will need social work/case management for placement. This plan was discussed with the patient and her son who were agreeable. Time dedicated to this consult is 35 minutes. MD FRAGAK/modl /[id number] CC: MD Jonatan Brantley MD d: 05/17/17 0529 t: 06/26/17 1449, CONSULTATION REPORT
--- NOTE | ~2017-05-17 | CON ---
PATIENT'S NAME: LIANE FISCHER [facility] AGE: 77 Y [address] ROOM: [place] [address] LOCATION: GPCU ADMIT DATE: 05/17/2017 Consultation DISCHARGE DATE: FAMILY PHYSICIAN: PHYSICIAN, NO ATTENDING PHYSICIAN: SHANKAR AVUGHN REFERRING PHYSICIAN: Javi Stoddard MD Consult for [place] physician library circulation assistant. This pleasant 77-year-old lady, is referred for rehab evaluation. She is status post bilateral total knee arthroplasty with computer navigation done on 04/21/2017. She was discharged to home and apparently she had been having UTI and has self imposed restriction of water intake so that she will not go to bathroom. She is possibly also idiopathic elevation of C protein, possible cellulitis of the left calf. She is treated for UTI. At the present time, she is alert and oriented. Tells me that her knees are not hurting. VITAL SIGNS: Blood pressure 99/52, temperature 98.0, pulse 57, and respirations 14. She is 5 feet 7 inches tall and weighs 77.9 kg. She is at the present time using cane in her right hand and does well with four-wheeled walker. She can ambulate up to 300 feet with contact guard assistance and sometimes handheld assistance. She is on the following medications: 1. Lipitor. 2. Neurontin. 3. Aspirin. 4. Florastor. 5. Coreg. 6. Aldactone. 7. Xarelto. 8. Protonix. 9. Keflex. 10. Tylenol. 11. NaCl 0.9%. 12. Dilaudid. 13. Dextrose. This lady has done well so far. She can ambulate 300 feet without much difficulty, really slowly but definitely she can do it. She is a good candidate for intensive rehabilitation at the beginning. PATIENT'S NAME: LIANE FISCHER [facility] AGE: 77 Y [address] ROOM: [place] [address] LOCATION: GPCU ADMIT DATE: 05/17/2017 Consultation DISCHARGE DATE: FAMILY PHYSICIAN: PHYSICIAN, NO ATTENDING PHYSICIAN: SHANKAR VAUGHN However, at the present time, I still feel that she will benefit from intensive rehabilitation of about 7 days. However, she can also be on outpatient basis on home health and at the present time, we have a full unit. However, if I am okay to take her per her insurance, I will be happy to do so for about 7 to 10 days aiming to discharge modified independence versus she can do home health on a regular basis and be assisted with PT, OT, and aide. However, I will continue to watch her alongside with you. For the time being, we have a full unit, but I will be following alongside with you. Thank you for this referral. All the above was explained to her and her son. They verbalized understanding. MD ALEJANDRINA LAL/anuradha /[id number] d: 05/17/17 2340 t: 05/18/17 0810, CONSULTATION REPORT
--- NOTE | ~2017-05-17 | ER ---
PATIENT'S NAME: LIANE FISCHER [facility] AGE: 77 Y [address] ROOM: [facility] [place], [place] [address] LOCATION: GPCU ADMIT DATE: 05/17/2017 ER/Outpatient Report DISCHARGE DATE: 05/18/2017 FAMILY PHYSICIAN: , NO ATTENDING PHYSICIAN: Blaze Arango SUBJECTIVE: This patient is a 77-year-old female, who was transferred by private vehicle from [facility] to [facility]. [place] had contacted Dr. Blaze Arango, orthopedic surgeon, who had performed bilateral knee replacement surgery. Dr. Arango wanted her transferred here for evaluation. Dr. Arango did see the patient. When she arrived, did get hospitalist involved with admission. I did not see the patient nor examined the patient. MD MAHOGANY MONTANEZ/anuradha /[id number] d: 05/19/17 1617 t: 05/20/17 0613, OUTPATIENT REPORT
[~2017-05-17 00:03] MED LIST changes: -FEOSOL325 MG PO; -KEFLEX500 MG PO; -LASIX20 MG PO; -MACROBID100 MG PO
[2017-05-17] MEDS ORDERED: LASIX20 MG PO (04:35)
--- NOTE | 2017-05-17 05:35 | NUR ---
Patient presented to a clinic in [place] with increased pain in legs after having bilat TKA with Dr. Arango on April 21. Patient was then sent to our ER for further evaluation. Admitted to PCU room 7717 for halfway placement and hyponatremia. Past medical history of CAD, HTN, stents, Sheep valve, DVT in leg, low back spinal stenosis, heart burn, Hx of GI bleeds, depression since surgery, and she was a former smoker. Patient had Valium and Hydromorphone prescription bottles in her purse. Bottles were counted and placed in security box [id number] by Stephen matos. Other patient belongings at bedside.
--- NOTE | 2017-05-17 10:30 | NUR ---
Introduced self and role of care management to patient. She lives in [place] by herself. She states that she is able to do some of her own ADL's. She recently had Bilateral knee replacements in April and went home on discharge. She states that her sons girlfriend was staying with her. She did her laundry, dishes and cleaned the house. She stated that she did not cook at all. I inquired how she got admitted to [facility]. She states that her neighbor told her yeaterday that she could get her admitted to [facility] in [place]. She states that they went to [facility] and was told they could not just admit her she had to be seen by a doctor first and have paperwork completed. She said they then went to a doctors office who completed the paperwork and went back to [facility]. They were then told that it would be 2-3 days before they could admit her and she needed to complete more paperwork. After leaving there they went to the Er in [place]. She stated that after "the doctor there ran a bunch of unnecessary test they sent me here." I then asked her what her discharge plan would be when the doctors felt she was ready. She states that Dr Arango "told me he would find a place for me to go so I could continue to get more therapy and he could keep a close eye on me." I explained that in [place] it would be the 4 local [facility] that do our Medicare Skilled stays. She then stated "well when I came to the joint class I was told that there was a floor I could go to after my surgery and I would continue to get therapy and recooperate". I tried to explain that we do not have a skilled unit in the hospital but she insisted that we did. She also stated that her son would agree with her because he was told the samething. I did offer to speak with her son and was told "you dont want to talk with him, he'll come on glue on you". I did offer to send referrals to the local nursing homes that had female openings. I did explain to her that I could not gaurentee that she would qualify for a skilled stay since she was able to ambulate 300 ft with SBA today for PT. I did explain that did not mean she could not go as a self pay. She did want me to send referrals. I also spoke with Dr Hanna and got an order for a GIRP consult. Patient denies any needs at this time. Will continue to follow.
--- NOTE | 2017-05-17 13:00 | NUR ---
I called and spoke with Elicia at [facility] and faxed referral information. I called and spoke with Floridalma at [facility] and faxed her a referral for [facility]. [facility] not have available female beds.
[2017-05-17] MEDS ORDERED: FEOSOL325 MG PO (13:06)
[2017-05-17] MEDS ORDERED: VALIUM5 MG PO (13:07)
[2017-05-17] MEDS ORDERED: MACROBID100 MG PO (13:08)
--- NOTE | 2017-05-17 15:00 | NUR ---
Received a call from Floridalma at [facility]. She states that she had the therapists review the referral information and they felt patient did not meet the qualificaitons for a skilled stay as she was doing too well. I met with Laurie and her son Librado and explained that she does not qualify for a skilled stay because she is doing too well. I did explain that we were waiting for Dr Stoddard to evaluate her to see if she could go to inpatient rehab. I did explain that if she went to inpatient rehab she would have to participate in 3 hours of very intense therapy. She also stated that it could a possibility that she could go stay with her son and daughter in law here in [place]. She wants to speak with Librado about her options. Will continue to follow.
--- NOTE | 2017-05-17 17:06 | NUR ---
Significant Event: Pt alert and oriented x3, continent of bowel and bladder, currently without pain. Pt ambulated 300 ft x3 today with wheeled walker, gait belt, x1 assist. Pt wishes to take acetaminophen instead of hydromorphone if possible. IV to R) hand running NS at 100ml/hr. Follow up: Possible transfer to inpatient rehab tomorrow.
--- NOTE | 2017-05-18 06:42 | NUR ---
Significant Event: PT admited yesterday AM and slept well throughout the night. Up once to bathroom SBA. PT rounded unit 2x (600ft) SBA before bed. A&Ox3. FAC & STEWART. C/O of tenderness and pain on palpitation of the calf muscles. Heat, redness, and swelling is noted bilaterally below the knee. LS are clear and pulses are present and palpable 2+. D5NS @100 R) hand. Follow up: Looking to admit to [facility], waiting on care management. Continue monitoring VS.
[2017-05-18] MEDS ORDERED: KEFLEX500 MG PO (14:36)
--- NOTE | 2017-05-18 15:31 | NUR ---
Spoke with Jaqui MOHAN on GIR this morning. She states that patient is doing too well to qualify for inpatient rehab. I did speak with patient and explained that inpatient rehab was not going to be an option. I asked her if she could go home with her son here in [place]. She did state that her daughter in law had offered for her to come stay with them. She stated that she could stay with her son Librado her in [facility] for a few days and when her son that lives in [place] got back from [place] on Monday she would retun home and continue outpt therapy. I explained all this to patients son Librado when he arrived. He still feels that his mother needs to be in a care home he stated "we all have lives and I cant be expect to upset my routine to take care of her". I explained that we could continue to look for placement but it would be private pay. He states that he has been speaking with someone at [facility] in [place] and they said since she had been in the hosptial 3 midnights she automatically qualifies for a Medicare skilled stay. I explained that she needed to have other qualifiers besides the 3 midnights. he then stated I will take care of it. I updated Dr Jauregui and Oliva MENA.
--- NOTE | 2017-05-18 16:14 | NUR ---
Telemetry d/c from patient. IV discontinued with catheter intact. Discharge instructions given to patient and son. Discussed medications, including new medications, follow-up appointments, and continued home care. Patient and so stat understanding of instructions and have no further questions. All belonings, including narcotics in safe, sent with patient. Escorted to vehicle via wheelchair.
== END 2017-05-18 15:02 | disposition disaster alternative care site (69) ==
LOC: GMED 00:03 → GPCU 02:50
PROVIDERS: ADMIT Orthopaedic Surgery
DX: L03.116 Cellulitis of left lower limb (principal); E87.1 Hypo-osmolality and hyponatremia; E86.0 Dehydration; Z96.653 Presence of artificial knee joint, bilateral; I25.10 Atherosclerotic heart disease of native coronary artery without angina pectoris; M06.9 Rheumatoid arthritis, unspecified; Z88.0 Allergy status to penicillin; Z88.5 Allergy status to narcotic agent; Z79.82 Long term (current) use of aspirin; Z79.899 Other long term (current) drug therapy
CPT/HCPCS: G0378; G8978; G8979; G8980; J7042